=== PATIENT | female | born 1950 | race Caucasian/White ===

== ENCOUNTER 2016-12-11 12:21 | Emergency (ER) | payer OTHER ==
[~2016-12-11] VITALS: Wt 70.0 kg
[~2016-12-11 12:21] MED LIST: AMLO-145 PO; MET25 PO; MULT-212 PO; QUIN20TA23 PO; ZOC10 PO
[2016-12-11] MEDS ORDERED: FLUORESCEIN STRIP RIGHT EYE ONE (13:30)
[2016-12-11] MEDS ORDERED: PRED20TA PO (14:13)
[2016-12-11] MEDS ORDERED: VALA500T PO (14:15)
[2016-12-11] MEDS ORDERED: ERYTOPOI LEFT EYE (14:15)
[2016-12-11] MEDS ORDERED: CARB15DR LEFT EYE (14:15)
[2016-12-11] MEDS ORDERED: IBUP-1542 PO (14:16)
--- NOTE | 2016-12-11 14:28 | ERD ---
ER Documentation Chief Complaint Date/Time DATE: 12/11/16 TIME: 14:22 Chief Complaint r eye redness and itching some eye pain . no trauma. 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 Patient states that her symptoms started approximately 2 days ago. Patient states her symptoms started after taking Radha-Springer for a cold. Patient reports recent URI symptoms including clear rhinorrhea and dry cough. She states that she woke up in the morning with a rash and eye redness after taking Radha Springer for her cold symptoms. Denies any eye pain or discharge. Patient states that she does have some eyelid swelling. Since the rash is itchy in nature. She denies any blurry vision or loss of vision. She denies any ear pain. Patient denies any foreign bodies, trauma or falls. Patient denies any headaches, loss of consciousness, nausea or vomiting. Patient denies any new creams, products, or contact lenses. ROS All systems reviewed and are negative except as per history of present illness. Medications Home Meds Active Scripts Ibuprofen* (Ibuprofen*) 600 Mg Tablet, 600 MG PO Q6, #20 TAB Prov:TOSHIA ZIMMERMAN PA-C 12/11/16 Carboxymethylcellulose Sodium* (Refresh Tears*) 15 Ml Drops, 2 DROP LEFT EYE QID , #1 EA Prov:TOSHIA ZIMMERMAN PA-C 12/11/16 Erythromycin* (Erythromycin* Ophthalmic) 1 Applic Oint, 1 APPLIC LEFT EYE QID for 7 Days, EA Prov:TOSHIA ZIMMERMAN PA-C 12/11/16 Valacyclovir Hcl* (Valacyclovir Hcl*) 500 Mg Tablet, 1000 MG PO TID for 7 Days, #21 TAB Prov:TOSHIA ZIMMERMAN PA-C 12/11/16 Prednisone* (Prednisone*) 20 Mg Tab, 60 MG PO DAILY for 5 Days, TAB Prov:TOSHIA ZIMMERMAN PA-C 12/11/16 Amlodipine Besylate* (Amlodipine Besylate*) 5 Mg Tablet, 5 MG PO DAILY for 30 Days, TAB Prov:JUDITH BRITO 09/05/14 Reported Medications Multivitamin With Minerals (ONE DAILY) 1 Each Tablet, 1 EACH PO DAILY 09/03/14 Methotrexate* (Methotrexate*) 2.5 Mg Tab, 7.5 MG PO EVERY MONDAY, TAB 09/03/14 Simvastatin (Simvastatin) 10 Mg Tablet, 10 MG PO DAILY, TAB 09/03/14 Quinapril Hcl (Quinapril Hcl) 20 Mg Tablet, 20 MG PO DAILY, TAB 09/03/14 Allergies Allergies: Uncoded Allergies: THIAZIDE (Adverse Reaction, Severe, 09/04/14) SEVERE HYPONATREMIA PMhx/Soc History of Surgery: Yes (LT HIP REPLACEMENT) Anesthesia Reaction: No Hx Neurological Disorder: No Hx Respiratory Disorders: No Hx Cardiac Disorders: Yes (HTN, HDL) Hx Psychiatric Problems: No Hx Miscellaneous Medical Probl: No Hx Alcohol Use: No Hx Substance Use: No Hx Tobacco Use: No Smoking Status: Never smoker FmHx Family History: No diabetes Physical Exam Vitals Vital Signs Date Time Temp Pulse Resp B/P Pulse Ox O2 Delivery O2 Flow Rate FiO2 12/11/16 12:24 98.8 92 22 169/85 98 Physical Exam GENERAL: Well-developed, well-nourished female. Appears in no acute distress. HEAD: Normocephalic, atraumatic. No deformities or ecchymosis. Dry erythematous scalp with active scaling noted, consistent with history of psoriasis. EYE: Normal eye alignment. No proptosis. Pupils equal, round, and reactive to light. EOMs intact. Periorbital swelling and erythema noted to the right eye. Right upper eyelid swelling and erythema with yellow crusted particles noted to eyelashes. EYE: Visual acuity w/ Snellen eye chart: OD= 20/30, OS= 20/40, OU= 20/40 Wood's lamp exam: No foreign bodies, corneal abrasions, ulcerations or pseudodendrites visualized with fluorescein dye. Anterior chamber clear. No hyphema or hypopion. ENT: External ear without any masses or tenderness. Auditory canals clear bilaterally. No lesions noted in bilateral auditory canals. TM visualized bilaterally, non-erythematous, non-bulging. Nasal mucosa pink with no discharge. Oropharynx is pink without any tonsillar erythema or exudates. No uvula deviation. No kissing tonsils. +Carrillo's sign= to R sided of nose. NECK: Supple. No lymphadenopathy or thyromegaly. No meningismus. No JVD. No bruits. Trachea midline. LUNG: Clear to auscultation bilaterally. No rhonchi, wheezing, rales or coarse breath sounds. HEART: Regular rate and rhythm. No murmurs, rubs or gallops. BACK: No midline tenderness. EXTREMITES: Equal pulses bilaterally. No peripheral clubbing, cyanosis or edema. No unilateral leg swelling. NEUROLOGIC: Alert and oriented x3, cooperative. Mood and affect appropriate to situation. Cranial nerves II through XII are grossly intact. No facial paralysis bilaterally. Normal speech. Motor exam: 5/5 strength in upper and lower extremities. Steady gait. SKIN: Normal color. Warm and dry. Erythematous plaque-like lesions noted to the right face from forehead to below R eye in dermatomal fashion. Results 24 hrs Current Medications Medications (Trade) Dose Ordered Sig/Maki Route PRN Reason Start Time Stop Time Status Last Admin Dose Admin Fluorescein Sodium (Itvew-Y-Vjvkd) 1 strip ONCE ONCE RIGHT EYE 12/11/16 13:30 12/11/16 13:53 DC Procedures/MDM MEDICAL DECISION MAKING: This is a 66-year-old female who presents with redness and swelling to her right eye along with a rash presenting in a dermatomal fashion. Vital signs were reviewed. Patient was afebrile. Patients vision was grossly intact. ENT exam revealed no vesicles in the auditory canal bilaterally. Patient denied any ear pain. No facial paralysis was noted. Geiger lamp exam with fluorescein staining was conducted which showed no pseudodendritic lesions. Patient did have lesions noted on the right side of her nose and tip. Positive Carrillo sign. Given these findings, the patients presentation is most consistent with herpes zoster ophthalmicus. I have a much lower clinical concern for bacterial conjunctivitis, viral conjunctivitis, allergic conjunctivitis, corneal abrasion , corneal ulcer, retained eye foreign body, periorbital cellulitis, orbital cellulitis, hordeolum, dacrocystitis. Low suspicion for Khanna White syndrome given the patient denied any ear pain, had no vesicles in her auditory canal and had no facial paralysis. PRESCRIPTIONS: Valayclovir, prednisone, erythromycin ointment, refresh eyedrops, ibuprofen DISCHARGE: At this time, patient is stable for discharge and outpatient management. I had a conversation with the patient and her nephew at length about the importance scheduling a follow-up appointment JASEN with an archival records clerk for further management of her symptoms. Patient should follow-up with an archival records clerk tomorrow. Referral information provided. Patient was advised to start Valacyclovir and prednisone immediately. Patient was given erythromycin ointment for her eyelid inflammation and swelling. Patient is also advised to use lubricating eye drops. Supportive measures were discussed with patient including cool compresses. Patient advised not to wear contact lenses or eye makeup. I have instructed the patient to promptly return to the ER for any new or worsening symptoms including acute vision loss, increased pain, fever, swelling, redness, warmth, nausea, vomiting. The patient and/or family expressed understanding of and agreement with this plan. All questions were answered. Home care instructions were provided. I discussed this case with my supervising physician, Dr. Sanchez, who agrees with the above mentioned diagnosis and treatment plan. Patients blood pressure was elevated (>120/80) but appears stable without evidence of hypertensive emergency, hypertensive urgency or end-organ failure. I had discussion with the patient about the risks of hypertension. I have advised the patient to follow up with his/her primary care physician for outpatient monitoring and treatment for hypertension in 2-3 days. I have instructed the patient to return to the ER for any new or worsening symptoms including chest pain, shortness of breath, headache, blurred vision, confusion, nausea, vomiting or LOC. Departure Diagnosis: Primary Impression: Herpes zoster ophthalmicus of right eye Condition: Stable Patient Instructions: Herpes Zoster Referrals: [facility] YOU HAVE RECEIVED A MEDICAL SCREENING EXAM AND THE RESULTS INDICATE THAT YOU DO NOT HAVE A CONDITION THAT REQUIRES URGENT TREATMENT IN THE EMERGENCY DEPARTMENT. FURTHER EVALUATION AND TREATMENT OF YOUR CONDITION CAN WAIT UNTIL YOU ARE SEEN IN YOUR DOCTORS OFFICE WITHIN THE NEXT 1-2 DAYS. IT IS YOUR RESPONSIBILITY TO MAKE AN APPOINTMENT FOR FOLOW-UP CARE. IF YOU HAVE A PRIMARY DOCTOR --you should call your primary doctor and schedule an appointment IF YOU DO NOT HAVE A PRIMARY DOCTOR YOU CAN CALL OUR PHYSICIAN REFERRAL HOTLINE AT IF YOU CAN NOT AFFORD TO SEE A PHYSICIAN YOU CAN CHOSE FROM THE FOLLOWING [facility] [address] [facility] [address] [facility] [address] [facility] [address] [facility]. [facility] [address] [facility]. [facility] [address] [facility]. [facility] YOU HAVE RECEIVED A MEDICAL SCREENING EXAM AND THE RESULTS INDICATE THAT YOU DO NOT HAVE A CONDITION THAT REQUIRES URGENT TREATMENT IN THE EMERGENCY DEPARTMENT. FURTHER EVALUATION AND TREATMENT OF YOUR CONDITION CAN WAIT UNTIL YOU ARE SEEN IN YOUR DOCTORS OFFICE WITHIN THE NEXT 1-2 DAYS. IT IS YOUR RESPONSIBILITY TO MAKE AN APPOINTMENT FOR FOLOW-UP CARE. IF YOU HAVE A PRIMARY DOCTOR --you should call your primary doctor and schedule and appointment IF YOU DO NOT HAVE A PRIMARY DOCTOR YOU CAN CALL OUR PHYSICIAN REFERRAL HOTLINE AT . IF YOU CAN NOT AFFORD TO SEE A PHYSICIAN YOU CAN CHOSE FROM THE FOLLOWING [facility] INSTITUTIONS: [facility] [address] [place] [address] [facility] [address] [place], [place] [id number] [place] [address] [address] [place], [place] [address] [place] [address] Hours: Mon - Fri 9:00 AM - 5:00 PM Additional Instructions: Take Valacyclovir and Prednisone as prescribed. Cool compresses to the eye advised. Use erythromycin ointment to eyelid. Take Ibuprofen as needed for pain. Patient will need to follow-up with an archival records clerk TOMORROW. Return to the emergency department for new or worsening symptoms including but not limited to acute visual loss, fever, chills, nausea, vomiting or loss of consciousness. Call your primary care doctor TOMORROW for an appointment during the next 1-2 days.See the doctor sooner or return here if your condition worsens before your appointment time. TOSHIA ZIMMERMAN PA-C Dec 11, 2016 14:28
== END 2016-12-11 14:38 | disposition home or self-care (01) ==
LOC: FTE 12:21
DX: B02.31 Zoster conjunctivitis (principal); I10 Essential (primary) hypertension; Z96.642 Presence of left artificial hip joint
CPT/HCPCS: 99284

== ENCOUNTER 2016-12-22 20:51 | Emergency (ER) | payer OTHER ==
[~2016-12-22] VITALS: Ht 162.6 cm; Wt 76.3 kg
[~2016-12-22 20:51] MED LIST changes: +CARB15DR LEFT EYE; +ERYTOPOI LEFT EYE; +IBUP-1542 PO; +PRED20TA PO; +VALA500T PO
[2016-12-22 20:57] VITALS: Ht 162.6 cm; Wt 76.3 kg
--- NOTE | 2016-12-22 23:35 | ERA ---
ER Documentation Chief Complaint Date/Time DATE: 12/22/16 TIME: 23:34 Chief Complaint High blood pressure HPI The patient is a 66-year-old female, presenting to the ER because of high blood pressure at home, it was 150/97 at about 1pm. She was recently diagnosed with shingles on the right side of her face, she is currently taking Valtrex, eyedrop and follow-up with her narcotics and vice detective. The pain is 10/10. She denies fever, chills, neck pain, chest pain, abdominal pain, vomiting. She complains of dysuria, denies diarrhea, constipation. She does not smoke nor drink Past medical history: Dyslipidemia, hypertension, psoriasis Past surgical history: Left hip replacement ROS All systems reviewed and are negative except as per history of present illness. Medications Home Meds Active Scripts Hydrocodone/Acetaminophen ([place] 5-325 Tablet) 1 Each Tablet, 1 TAB PO Q6H Y for PAIN, #7 TAB Prov:TARA WEEKS MD 12/23/16 Ibuprofen* (Ibuprofen*) 600 Mg Tablet, 600 MG PO Q6, #20 TAB Prov:TOSHIA ZIMMERMAN PA-C 12/11/16 Carboxymethylcellulose Sodium* (Refresh Tears*) 15 Ml Drops, 2 DROP LEFT EYE QID , #1 EA Prov:TOSHIA ZIMMERMAN PA-C 12/11/16 Erythromycin* (Erythromycin* Ophthalmic) 1 Applic Oint, 1 APPLIC LEFT EYE QID for 7 Days, EA Prov:TOSHIA ZIMMERMAN PA-C 12/11/16 Valacyclovir Hcl* (Valacyclovir Hcl*) 500 Mg Tablet, 1000 MG PO TID for 7 Days, #21 TAB Prov:TOSHIA ZIMMERMAN PA-C 12/11/16 Prednisone* (Prednisone*) 20 Mg Tab, 60 MG PO DAILY for 5 Days, TAB Prov:TOSHIA ZIMMERMAN PA-C 12/11/16 Amlodipine Besylate* (Amlodipine Besylate*) 5 Mg Tablet, 5 MG PO DAILY for 30 Days, TAB Prov:JUDITH BRITO 09/05/14 Reported Medications Multivitamin With Minerals (ONE DAILY) 1 Each Tablet, 1 EACH PO DAILY 09/03/14 Methotrexate* (Methotrexate*) 2.5 Mg Tab, 7.5 MG PO EVERY MONDAY, TAB 09/03/14 Simvastatin (Simvastatin) 10 Mg Tablet, 10 MG PO DAILY, TAB 09/03/14 Quinapril Hcl (Quinapril Hcl) 20 Mg Tablet, 20 MG PO DAILY, TAB 09/03/14 Allergies Allergies: Uncoded Allergies: THIAZIDE (Adverse Reaction, Severe, 09/04/14) SEVERE HYPONATREMIA PMhx/Soc History of Surgery: Yes (LT HIP REPLACEMENT) Anesthesia Reaction: No Hx Neurological Disorder: No Hx Respiratory Disorders: No Hx Cardiac Disorders: Yes (HTN, HDL) Hx Psychiatric Problems: No Hx Miscellaneous Medical Probl: No Hx Alcohol Use: No Hx Substance Use: No Hx Tobacco Use: No Smoking Status: Never smoker Physical Exam Vitals Vital Signs Date Time Temp Pulse Resp B/P Pulse Ox O2 Delivery O2 Flow Rate FiO2 12/23/16 01:31 92 21 142/87 99 Room Air 12/22/16 20:57 97.7 93 20 197/77 99 Physical Exam Const: No acute distress. Head: Atraumatic. Eyes: Normal Conjunctiva. ENT: Normal External Ears, Nose and Mouth. Neck: Full range of motion. No meningismus. Resp: Clear to auscultation bilaterally. Cardio: Regular rate and rhythm, no murmurs. Abd: Soft, non distended, normal bowel sounds, non tender. Skin: No petechiae or rashes. Back: No midline or flank tenderness. Ext: No cyanosis, or edema. Neur: Awake and alert. No focal deficit Psych: Normal Mood and Affect. Results 24 hrs Laboratory Tests Test 12/23/16 01:09 Bedside Urine Blood Negative Bedside Urine Glucose (UA) Negative Bedside Urine Ketones (LAB) Negative Bedside Urine Leukocyte Esterase (L 1+ Bedside Urine Nitrite (LAB) Negative Bedside Urine Protein (LAB) Negative Bedside Urine pH (LAB) 7.0 Current Medications Medications (Trade) Dose Ordered Sig/Maki Route PRN Reason Start Time Stop Time Status Last Admin Dose Admin Acetaminophen/ Hydrocodone Bitart ([place] (10/325)) 1 tab ONCE ONCE PO 12/23/16 00:00 12/23/16 00:01 DC 12/22/16 23:54 Ondansetron HCl (Zofran Odt) 4 mg ONCE STAT ODT 12/22/16 23:46 12/22/16 23:47 DC 12/22/16 23:51 Procedures/MDM MEDICAL MAKING DECISION: The patient is a 66-year-old female, presenting with acute accelerated hypertension, most likely due to the pain from the right facial herpes zoster and acute cystitis. She was treated with Granby 10 mg p.o. and Zofran ODT with good response, her blood pressure improved. The differential diagnoses considered include but are not limited to subarachnoid hemorrhage, occult trauma, CVA, meningitis, encephalitis, hypertension, tension , migraine, cluster, narcotic withdrawal, cervical spine disease. Departure Diagnosis: Primary Impression: Accelerated hypertension Additional Impression: UTI (urinary tract infection) Condition: Good Comments She was discharged with Granby and Bactrim DS I discussed the findings with the patient. I advised the patient to follow-up with the primary physician in about 1-2 days, sooner if needed and return if any concern. TARA WEEKS MD Dec 22, 2016 23:35
[2016-12-22] MEDS ORDERED: ONDANSETRON (ODT) 4 MG TAB ODT STA (23:46)
[2016-12-23] MEDS ORDERED: HYDROCODONE/APAP (10/325) TAB PO ONE
[2016-12-23 01:08] LABS: URINE BLOOD (Dip) POC Negative (NEGATIVE)
[2016-12-23 01:31] VITALS: BP 142/87; PULSE 92; RESP 21
[2016-12-23] MEDS ORDERED: HYDR-906 PO (01:41)
[2016-12-24] MEDS ORDERED: HYDR12.58 PO (23:03)
[2016-12-24] MEDS ORDERED: SULF1TAB31 PO (23:14)
== END 2016-12-23 01:46 | disposition home or self-care (01) ==
LOC: E/R 20:51
DX: I10 Essential (primary) hypertension (principal); R40.2142 Coma scale, eyes open, spontaneous, at arrival to emergency department; N39.0 Urinary tract infection, site not specified; R40.2252 Coma scale, best verbal response, oriented, at arrival to emergency department; R40.2362 Coma scale, best motor response, obeys commands, at arrival to emergency department; Z96.642 Presence of left artificial hip joint
CPT/HCPCS: 81003; 99283

== ENCOUNTER 2016-12-24 22:18 | Emergency (ER) | payer OTHER ==
[~2016-12-24] VITALS: Ht 162.6 cm; Wt 72.6 kg
[~2016-12-24 22:18] MED LIST changes: +HYDR-906 PO
[2016-12-24 22:23] VITALS: Ht 162.6 cm; Wt 72.6 kg
[2016-12-24] MEDS ORDERED: PHENAZOPYRIDINE 100 MG TAB PO ONE (23:00)
[2016-12-24] MEDS ORDERED: SODIUM CHLORIDE 0.9% 1L BAG IV* STA (23:00)
[2016-12-24] MEDS ORDERED: CEFTRIAXONE 1 GM/50 ML (PMX) 50 ML IVPB STA (23:00)
[2016-12-24] MEDS ORDERED: HYDR12.58 PO (23:03)
[2016-12-24] MEDS ORDERED: SULF1TAB31 PO (23:14)
[2016-12-24 23:27] LABS: ADD SCAN DIFF NO
[2016-12-24 23:39] LABS: INR 0.85; PROTIME 11.6 Sec (12.2-14.2); PT RATIO 0.9
[2016-12-24 23:40] LABS: PARTIAL THROMBOPLASTIN TIME 27.5 Sec (25.0-35.0)
--- NOTE | 2016-12-24 23:40 | RADRPT ---
PROCEDURE: CHEST - 1 VIEW CLINICAL INDICATION: 66-year-old female with shortness of breath and sepsis. TECHNIQUE: A single frontal AP semi-erect view of the chest was performed portably. The images we re reviewed on a PACS workstation. COMPARISON: Chest x-ray September 03, 2014. FINDINGS: The cardiomediastinal silhouette is within normal limits. The thoracic aortic arch is calcified. T here is a shallow inspiration. There is mild bibasilar subsegmental atelectasis. There is no evide nce for an infiltrate. There is no evidence for congestive heart failure. There is no evidence for pneumothorax. The osseous structures are intact. IMPRESSION: 1. Calcified thoracic aortic arch. 2. Shallow inspiration. 3. Mild bibasilar subsegmental atelectasis. .Panda Iqbal MD, MD Date Time Electronically viewed and signed by .Panda Iqbal MD, on 12/24/2016 23:40 .M/
[2016-12-24 23:46] LABS: ADD UMIC NO; URINE BILIRUBIN (Dip) NEGATIVE (NEGATIVE); URINE BLOOD (Dip) NEGATIVE (NEGATIVE); URINE COLOR LT. YELLOW (YELLOW); URINE GLUCOSE (Dip) NEGATIVE (NEGATIVE); URINE KETONES (Dip) NEGATIVE (NEGATIVE); URINE LEUKOCYTE ESTERASE (Dip) NEGATIVE (NEGATIVE); URINE NITRITE (Dip) NEGATIVE (NEGATIVE); URINE TOTAL PROTEIN (Dip) NEGATIVE (NEGATIVE); URINE UROBILINOGEN (Dip) 0.2 E.U./dL (0.1-1.0)
[2016-12-24 23:47] LABS: ALBUMIN 4.5 g/dl (3.3-4.9); CHLORIDE 90 mmol/L (97-110); SODIUM 130 mmol/L (135-144)
[2016-12-24 23:48] LABS: POTASSIUM 3.8 mmol/L (3.5-5.1)
[2016-12-24 23:50] LABS: ALANINE AMINOTRANSFERASE 36 IU/L (13-69); ALBUMIN/GLOBULIN RATIO 1.55; ALKALINE PHOSPHATASE 49 IU/L (42-121); ANION GAP 16 (8-16); ASPARTATE AMINO TRANSFERASE 37 IU/L (15-46); BILIRUBIN,INDIRECT 0.3 mg/dl (0-1.1); BILIRUBIN,TOTAL 0.3 mg/dl (0.2-1.3); BLOOD UREA NITROGEN 10 mg/dl (7-20); CARBON DIOXIDE 28 mmol/L (21-31); CREATININE 0.77 mg/dl (0.44-1.00); TOTAL PROTEIN 7.4 g/dl (6.1-8.1)
[2016-12-24 23:51] LABS: CALCIUM 9.1 mg/dl (8.4-10.2); GLUCOSE 93 mg/dl (70-220)
--- NOTE | 2016-12-25 | ERA ---
ER Documentation Chief Complaint Date/Time DATE: 12/24/16 TIME: 23:57 Chief Complaint Chills and weakness for one week. Recent UTI and shingles HPI Patient is a 66-year-old female who reports generalized weakness as well as dysuria and nausea for the last couple of days. She was diagnosed with urinary tract infection 2 days ago and prescribed Bactrim. She did not take the Bactrim because it made her nauseated. She has not actually had a fever although she reports chills. She is having some upper back pain But no vomiting. She denies any chest pain, shortness of breath, coughing, congestion , rhinorrhea, sore throat, otalgia, headache, focal weakness, paresthesias, abdominal pain, or diarrhea. She states her shingles has resolved as well as the pain involved with the shingles. The remainder review of systems are negative. ROS All systems reviewed and are negative except as per history of present illness. Medications Home Meds Active Scripts Erythromycin* (Erythromycin* Ophthalmic) 1 Applic Oint, 1 APPLIC LEFT EYE QID for 7 Days, EA Prov:TOSHIA ZIMMERMAN PA-C 12/11/16 Valacyclovir Hcl* (Valacyclovir Hcl*) 500 Mg Tablet, 1000 MG PO TID for 7 Days, #21 TAB Prov:TOSHIA ZIMMERMAN PA-C 12/11/16 Amlodipine Besylate* (Amlodipine Besylate*) 5 Mg Tablet, 5 MG PO DAILY for 30 Days, TAB Prov:JUDITH BRITO 09/05/14 Reported Medications Sulfamethoxazole/Trimethoprim (Bactrim Ds Tablet) 1 Each Tablet, 1 EACH PO BID, TAB 12/24/16 Hydrochlorothiazide* (Hydrochlorothiazide*) 12.5 Mg Tablet, 12.5 MG PO DAILY, # 30 TAB 12/24/16 Simvastatin (Simvastatin) 10 Mg Tablet, 10 MG PO DAILY, TAB 09/03/14 Quinapril Hcl (Quinapril Hcl) 20 Mg Tablet, 20 MG PO DAILY, TAB 09/03/14 Discontinued Reported Medications Multivitamin With Minerals (ONE DAILY) 1 Each Tablet, 1 EACH PO DAILY 09/03/14 Methotrexate* (Methotrexate*) 2.5 Mg Tab, 7.5 MG PO EVERY MONDAY, TAB 09/03/14 Discontinued Scripts Hydrocodone/Acetaminophen ([place] 5-325 Tablet) 1 Each Tablet, 1 TAB PO Q6H Y for PAIN, #7 TAB Prov:TARA WEEKS MD 12/23/16 Ibuprofen* (Ibuprofen*) 600 Mg Tablet, 600 MG PO Q6, #20 TAB Prov:TOSHIA ZIMMERMAN PA-C 12/11/16 Carboxymethylcellulose Sodium* (Refresh Tears*) 15 Ml Drops, 2 DROP LEFT EYE QID , #1 EA Prov:TOSHIA ZIMMERMAN PA-C 12/11/16 Prednisone* (Prednisone*) 20 Mg Tab, 60 MG PO DAILY for 5 Days, TAB Prov:TOSHIA ZIMMERMAN PA-C 12/11/16 Allergies Allergies: Coded Allergies: sulfamethoxazole (Verified Allergy, Intermediate, NAUSEA AND VOMITING, ) Uncoded Allergies: THIAZIDE (Adverse Reaction, Severe, 09/04/14) SEVERE HYPONATREMIA PMhx/Soc History of Surgery: Yes (LT HIP REPLACEMENT) Anesthesia Reaction: No Hx Neurological Disorder: No Hx Respiratory Disorders: No Hx Cardiac Disorders: Yes (HTN, HDL) Hx Psychiatric Problems: No Hx Miscellaneous Medical Probl: No Hx Alcohol Use: No Hx Substance Use: No Hx Tobacco Use: No Smoking Status: Never smoker FmHx Family History: diabetes Physical Exam Vitals Vital Signs Date Time Temp Pulse Resp B/P Pulse Ox O2 Delivery O2 Flow Rate FiO2 12/25/16 00:30 98.2 99 150/88 98 Room Air 12/24/16 23:39 98.6 102 22 157/97 96 Room Air 12/24/16 22:23 98.1 104 18 174/89 95 Physical Exam Const: [] Well-developed well-nourished female sitting on the bed in no acute distress. Head: Atraumatic normocephalic Eyes: Normal Conjunctiva ENT: Normal External Ears, Nose and Mouth. Neck: Full range of motion..~ No meningismus. Resp: Clear to auscultation bilaterally Cardio: Regular rate and rhythm, no murmurs Abd: Soft, non tender, non distended. Normal bowel sounds Skin: No petechiae or rashes Back: No midline or flank tenderness Ext: No cyanosis, or edema Neur: Awake and alert, oriented 3, GCS of 15, moves all extremities equally , nonfocal, no weakness appreciated Psych: Normal Mood and Affect Result Diagram: 12/24/16229912/24/162299 Results 24 hrs Laboratory Tests Test 12/24/16 23:00 12/25/16 00:48 Activated Partial Thromboplast Time 27.5Sec Alanine Aminotransferase (ALT/SGPT) 36IU/L Albumin 4.5g/dl Albumin/Globulin Ratio 1.55 Alkaline Phosphatase 49IU/L Anion Gap 16 Aspartate Amino Transf (AST/SGOT) 37IU/L Basophils # 0.010^3/ul Basophils % 0.1% Blood Urea Nitrogen 10mg/dl Calcium Level 9.1mg/dl Carbon Dioxide Level 28mmol/L Chloride Level 90mmol/L Creatinine 0.77mg/dl Direct Bilirubin 0.00mg/dl Eosinophils # 0.010^3/ul Eosinophils % 0.3% Globulin 2.90g/dl Glucose Level 93mg/dl Hematocrit 36.5% Hemoglobin 13.1g/dl INR International Normalized Ratio 0.85 Indirect Bilirubin 0.3mg/dl Lactic Acid Level 0.7mmol/L 0.8mmol/L Lymphocytes # 3.910^3/ul Lymphocytes % 40.7% Mean Corpuscular Hemoglobin 31.5pg Mean Corpuscular Hemoglobin Concent 35.9g/dl Mean Corpuscular Volume 87.7fl Mean Platelet Volume 9.3fl Monocytes # 1.010^3/ul Monocytes % 10.1% Neutrophils # 4.710^3/ul Neutrophils % 48.5% Nucleated Red Blood Cells # 0.010^3/ul Nucleated Red Blood Cells % 0.0/100WBC Platelet Count 73041^3/UL Potassium Level 3.8mmol/L Prothrombin Time 11.6Sec Prothrombin Time Ratio 0.9 Red Blood Count 4.1610^6/ul Red Cell Distribution Width 11.9% Sodium Level 130mmol/L Total Bilirubin 0.3mg/dl Total Protein 7.4g/dl Troponin I < 0.010ng/ml Urine Bilirubin NEGATIVE Urine Clarity CLEAR Urine Color LT. YELLOW Urine Glucose NEGATIVE% Urine Hemoglobin NEGATIVE Urine Ketones NEGATIVE Urine Leukocyte Esterase NEGATIVE Urine Nitrite NEGATIVE Urine Specific [place] <=1.005 Urine Total Protein NEGATIVE Urine Urobilinogen 0.2 E.U./dL Urine pH 7.0 White Blood Count 9.610^3/ul Current Medications Medications (Trade) Dose Ordered Sig/Maki Route PRN Reason Start Time Stop Time Status Last Admin Dose Admin Sodium Chloride 2250 ml 2,250 ml BOLUS OVER 2 HOURS STAT IV* 12/24/16 23:00 12/24/16 23:07 DC 12/24/16 23:35 Ceftriaxone Sodium (Rocephin) 50 ml @ 100 mls/hr ONCE STAT IVPB 12/24/16 23:00 12/24/16 23:29 DC 12/24/16 23:35 Phenazopyridine HCl (Pyridium) 200 mg ONCE ONCE PO 12/24/16 23:00 12/24/16 23:07 DC 12/24/16 23:34 Procedures/MDM Differential includes but is not limited to urinary tract infection, pyelonephritis, viral syndrome, dehydration, generalized weakness, electrolyte disturbance EKG demonstrates normal sinus rhythm and 100 bpm with no evidence for acute ischemia, no old EKG available for comparison, motion artifact noted, DE interval within normal limits, QT interval also within normal limits Chest x-ray does not reveal any acute cardiopulmonary process At this time patient's test results have returned. There are no obvious abnormalities that would explain the patient's generalized weakness. Her urine is clean and appears that her UTI has resolved. She does not have a white count and although her sodium level is slightly low it is not low enough to blame for her symptoms. She appears stable for discharge home with close follow -up with her primary care physician. Departure Diagnosis: Primary Impression: General weakness Additional Impression: Hypertension Qualified Code: I10 - Essential hypertension Condition: Good Patient Instructions: Generalized Weakness, High Blood Pressure (Hypertension) , Weakness, Unk Cause Additional Instructions: I am going to increase her amlodipine to 10 mg a day. I would like for you to schedule a follow-up appointment with your primary care physician. Continue your care as currently. Also continue to monitor your blood pressure and record it. Take these recordings to your appointment with your primary care physician as here she may need to adjust her medications further. Return to the emergency department for any new or worsening symptoms. DEANNA PEDRO Dec 25, 2016 00:00
[2016-12-25 00:05] LABS: TROPONIN-I < 0.010 ng/ml (0.00-0.12)
[2016-12-25 00:38] LABS: BASOPHILS % 0.1 % (0.0-2.0); EOSINOPHILS % 0.3 % (0.0-7.0); HEMATOCRIT 36.5 % (37.0-47.0); HEMOGLOBIN 13.1 g/dl (12.0-16.0); LYMPHOCYTES # 3.9 10^3/ul (0.8-2.9); LYMPHOCYTES % 40.7 % (15.0-51.0); MEAN CORPUSCULAR HEMOGLOBIN 31.5 pg (29.0-33.0); MEAN CORPUSCULAR HGB CONC 35.9 g/dl (32.0-37.0); MEAN CORPUSCULAR VOLUME 87.7 fl (82.0-101.0); MEAN PLATELET VOLUME 9.3 fl (7.4-10.4); MONOCYTES % 10.1 % (0.0-11.0); NEUTROPHIL # 4.7 10^3/ul (1.6-7.5); NEUTROPHILS % 48.5 % (39.0-77.0); PLATELET COUNT 288 10^3/UL (140-415); RED BLOOD COUNT 4.16 10^6/ul (4.20-5.40); RED CELL DISTRIBUTION WIDTH 11.9 % (11.5-14.5); WHITE BLOOD COUNT 9.6 10^3/ul (4.8-10.8)
[2016-12-25] MEDS ORDERED: AMLO-147 PO (01:34)
[2016-12-25 01:53] VITALS: BP 145/87; PULSE 97; RESP 20; TEMP 98.2
== END 2016-12-25 02:09 | disposition home or self-care (01) ==
LOC: E/R 22:18
DX: R53.1 Weakness (principal); I10 Essential (primary) hypertension; R06.02 Shortness of breath; R40.2142 Coma scale, eyes open, spontaneous, at arrival to emergency department; R40.2252 Coma scale, best verbal response, oriented, at arrival to emergency department; R40.2362 Coma scale, best motor response, obeys commands, at arrival to emergency department; Z96.642 Presence of left artificial hip joint
CPT/HCPCS: 36415; 71010; 80053; 81003; 83605; 84484; 85025; 85610; 85730; 87040; 87086; 93005; 96365; 99285; J0696; J7030

== ENCOUNTER 2017-10-30 12:20 | Emergency (ER) | END 2017-10-30 13:50 | disposition home or self-care (01) ==